=== PATIENT | female | born 1970 | race Caucasian/White ===

== ENCOUNTER → 2016-11-19 | Outpatient (CLI) | payer OTHER ==
[2014-01-16 18:15] VITALS: BP 154/80
--- NOTE | 2016-11-19 14:08 | RAD ---
EXAM: DIGITAL SCREEN BILAT W/CAD. HISTORY: Screening. COMPARISON: None, this is a baseline. FINDINGS: Digital mammography was performed. Computer-aided detection (CAD) was utilized. The breast parenchyma is primarily fatty (tissue density A). No dominant suspicious mass, suspicious microcalcifications, or architectural distortion is identified. Both breasts demonstrate several, well-circumscribed, benign-appearing masses. IMPRESSION: No mammographic evidence of malignancy. BI-RADS CATEGORY: 2 BENIGN FINDING(S) RECOMMENDED FOLLOW-UP: 12M 12 MONTH FOLLOW-UP PQRS compliance statement: Patient information was entered into a reminder system with a target due date for the next mammogram. Mammography is a sensitive method for finding small breast cancers, but it does not detect them all and is not a substitute for careful clinical examination. A negative mammogram does not negate a clinically suspicious finding and should not result in delay in biopsying a clinically suspicious abnormality. "Our facility is accredited by the [employer] Mammography Program."
== END | disposition home or self-care (01) ==
LOC: MAMMO 13:07
PROVIDERS: ATTEND Family Medicine
DX: Z12.31 Encounter for screening mammogram for malignant neoplasm of breast (principal)
CPT/HCPCS: G0202; 77067

== ENCOUNTER → 2017-03-14 | Outpatient (CLI) | payer OTHER ==
[2014-01-16 18:15] VITALS: BP 154/80
--- NOTE | 2017-03-14 15:11 | KCIC ---
EXAM: Lumbar spine, 3 views. HISTORY: Pain. COMPARISON: None. FINDINGS: Frontal, lateral and coned sacral views of the lumbar spine are obtained. There is grade 2-3 anterolisthesis of L5 on S1 with pars interarticularis defects. There is complete loss of the disc space with endplate remodeling and facet arthropathy at this level. The vertebral bodies are normal in height the remainder of the disc spaces are preserved. IMPRESSION: Grade 2-3 anterolisthesis of L5 on S1 with pars defects and advanced degenerative change. Electronically signed by: Lora Bernabe MD (03/14/2017 3:08 PM) [facility]
== END | disposition home or self-care (01) ==
LOC: KCIC 14:40
PROVIDERS: ATTEND Family Medicine
DX: M47.896 Other spondylosis, lumbar region (principal); G89.29 Other chronic pain
CPT/HCPCS: 72100

== ENCOUNTER → 2017-04-07 | Outpatient (CLI) | payer OTHER ==
[2014-01-16 18:15] VITALS: BP 154/80
[~2017-04-07] MED LIST: FLUO10CA13 PO; HYDR-2758 PO; MELO7.5T29 PO
== END | disposition home or self-care (01) ==
LOC: KCIC MRI 13:19
PROVIDERS: ATTEND Neurological Surgery

== ENCOUNTER → 2017-05-01 | Outpatient (CLI) | payer OTHER ==
[2014-01-16 18:15] VITALS: BP 154/80
[~2017-05-01] MED LIST changes: +IOHEXOL 180 MG/ML 10 ML VIAL. IT ONE; +LIDOCAINE 1% Multi-Dose 20 ML VIAL. ID ONE
== END | disposition home or self-care (01) ==
LOC: KCIC 10:05
PROVIDERS: ATTEND Neurological Surgery
DX: Z53.9 Procedure and treatment not carried out, unspecified reason (principal)

== ENCOUNTER → 2017-05-06 | Outpatient (CLI) | payer OTHER ==
[2014-01-16 18:15] VITALS: BP 154/80
--- NOTE | 2017-05-06 17:35 | KCIC ---
Lumbar myelogram 05/06/2017 Clinical History: Severe low back pain which radiates down both legs.. Technique: After the risks and benefits of the procedure were explained to the patient, written informed consent was obtained. The patient was placed prone on the fluoroscopy table and the lower back was prepped and draped in sterile fashion. 1% lidocaine was used as a local anesthetic. Under fluoroscopic guidance, the thecal sac of the lumbar cistern was punctured at the L2-L3 level using 22-gauge spinal needle. After confirming clear CSF return, 15 cc of Omnipaque 180 were injected through the needle into the thecal sac of the lumbar cistern under fluoroscopic guidance. Following this the needle was removed and hemostasis achieved at the puncture site. A sterile bandage was placed on the skin puncture site. AP, bilateral oblique, lateral and standing neutral, flexion and extension lateral digital radiographs of the lumbar spine were obtained. Following this the patient was taken to CT where a CT scan of the lumbar spine was performed. This will be reported separately. Following the examinations the patient was sent home with an instruction sheet. The patient tolerated the procedure well and there were no immediate complications. The total fluoroscopic time for this procedure was 2 minutes 7 seconds. 9 digital spot radiographs were obtained. Findings: Very mild S-shaped curvature of the thoracolumbar spine is seen. There appears to be bilateral spondylolysis at L5. Grade 2 spondylolisthesis of L5 in relation to S1 is noted. Degenerative changes consisting of marked disc space narrowing and vertebral endplate sclerosis are seen at L5-S1. The alignment of the lumbar vertebrae is unchanged with flexion and extension. Mild anterior extradural defects are seen upon the contrast column at L2-3 and L3-4. There is no evidence of complete block of contrast at any level involving the lumbar spine. Impression: 1. Bilateral spondylolysis with grade 2 spondylolisthesis of L5 in relation to S1. 2. Degenerative changes are seen involving the mid and lower lumbar spine as outlined above. Electronically signed by: Amadeo Clancy MD (05/06/2017 5:32 PM) [id number]
--- NOTE | 2017-05-06 17:41 | KCIC ---
CT lumbar myelogram 05/06/2017 CLINICAL HISTORY: Severe low back pain which radiates down both legs. TECHNIQUE: This study was performed after the patient's Lumbar Myelogram. Contiguous, 0.625 mm axial sections were obtained through the lumbar spine. 3 mm reconstructed sagittal and axial and coronal images of the lumbar spine were obtained. FINDINGS: Comparison is made to the patient's Lumbar Myelogram performed earlier today. Sagittal and coronal reconstructed images demonstrate very mild S-shaped curvature of the thoracolumbar spine. Bilateral spondylolysis is seen at L5. Grade 1 spondylolisthesis of L5 in relation to S1 is noted. Degenerative changes consisting of disc space narrowing, vacuum disc phenomenon and mild to moderate anterior and posterior vertebral body osteophyte formation are seen at L5-S1. Mild scattered atherosclerotic plaque formation is seen involving the abdominal aorta and its branches. The L1-2, L2-3 and L3-4 disc spaces are within normal limits. At the L4-5 disc space there is a minimal generalized disc bulge. Degenerative changes are seen involving the facet joints bilaterally. These findings when combined do not result in significant central spinal canal or neural foraminal stenosis. At the L5-S1 disc space there is a mild to moderate generalized disc bulge. This is slightly eccentric to the right. Degenerative changes are seen involving the facet joints bilaterally. These findings when combined with the spondylolisthesis do not result in significant central spinal canal stenosis. Severe, right greater than left, neural foraminal stenosis is seen. IMPRESSION: 1. Bilateral spondylolysis with grade 1 spondylolisthesis at L5-S1. 2. The changes of degenerative disc disease are seen involving the lower lumbar spine. These findings do not result in significant central spinal canal stenosis at any level. Severe right greater than left neural foraminal stenosis is seen at L5-S1. Electronically signed by: Amadeo Clancy MD (05/06/2017 5:38 PM) [facility]
== END | disposition home or self-care (01) ==
LOC: KCIC 10:25
PROVIDERS: ATTEND Neurological Surgery
DX: M43.06 Spondylolysis, lumbar region (principal); M51.36 Other intervertebral disc degeneration, lumbar region; M48.07 Spinal stenosis, lumbosacral region; I10 Essential (primary) hypertension
CPT/HCPCS: 72132; 72265

== ENCOUNTER → 2020-09-19 | Outpatient (CLI) | payer OTHER ==
[2014-01-16 18:15] VITALS: BP 154/80
[~2020-09-19] MED LIST changes: +AMLO-187 PO; +ASPI-630 PO; +ATOR40TA59 PO; +BUPR300T92 PO; +CLOP75TA PO; +GLIM4TAB8 PO; -HYDR-2758 PO; +HYDR-2761 PO; -IOHEXOL 180 MG/ML 10 ML VIAL. IT ONE; -LIDOCAINE 1% Multi-Dose 20 ML VIAL. ID ONE; +LISI20TA18 PO; +METH-38 PO; +MIRTAZAPINE PO; +SULF-16 PO; +metformin PO; +pregabalin PO
--- NOTE | 2020-09-20 07:53 | KCIC ---
Chest radiograph 09/19/2020 2:30 PM INDICATION: Hypoxia COMPARISON: None available TECHNIQUE: Frontal and lateral views of the chest are provided. FINDINGS: The cardiomediastinal silhouette is within normal limits. There are no pleural effusions. There is no pulmonary vascular congestion. There is no pneumothorax. Patchy bandlike density identified in the lingula. No significant osseous abnormality is identified. IMPRESSION: Patchy bandlike density identified in the lingula which may represent lingular infiltrate. Short-term follow-up radiographs could be of benefit to ensure resolution. Electronically signed by: Georgina Gomez MD (09/20/2020 7:51 AM) [facility]
== END ==
LOC: KCIC 14:22
PROVIDERS: ATTEND Family Medicine
DX: J98.4 Other disorders of lung (principal); Z86.73 Personal history of transient ischemic attack (TIA), and cerebral infarction without residual deficits
CPT/HCPCS: 71046